=== PATIENT | male | born 2005 | race Hispanic/Latino ===

== ENCOUNTER 2023-05-03 22:51 | Emergency (ER) | payer MEDICAID ==
[2023-05-03] MEDS ORDERED: Ibuprofen 200 MG TAB ONE (23:41)
== END 2023-05-03 23:53 | disposition home or self-care (01) ==
LOC: CSHERS 22:51
DX: S43.401A Unspecified sprain of right shoulder joint, initial encounter (principal); Z55.6 Problems related to health literacy; W01.0XXA Fall on same level from slipping, tripping and stumbling without subsequent striking against object, initial encounter